=== PATIENT | female | born 1965 | race American Indian/Alaskan Native ===

== ENCOUNTER 2016-06-19 20:06 | Inpatient (IN) | payer OTHER ==
--- NOTE | 2016-06-19 21:20 | Emergency Department Report ---
ED General Adult HPI - General Chief complaint: Altered Mental Status Stated complaint: HYPERTENSION,AMS Time Seen by Provider: 06/19/16 20:30 Source: patient, EMS (ems notes not available at time of chart dictation), RN notes reviewed, old records reviewed Mode of arrival: Stretcher Limitations: Altered Mental Status - History of Present Illness Initial comments: This is a 51-year-old female. She is previously unknown to me. Has a past medical history of hypertension, end-stage renal disease on dialysis Wednesday, Wednesday, Wednesday, reported history of stroke with residual right-sided hemiparesis The patient is brought to the hospital by EMS from dialysis for altered mental status. The patient denies headache, neck pain, chest pain, abdominal pain and shortness of breath. 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 Bermudez. The patient reports that she thinks that she is here for altered mental status but she is not certain why. She cannot describe exacerbating or relieving factors. Denies cough, shortness of breath, chest pain, irritative and obstructive urinary symptoms. -: unknown Consistency: constant Improves with: none Worsens with: none Associated Symptoms: confusion. denies: chest pain, cough, diaphoresis, fever/ chills, loss of appetite, malaise, nausea/vomiting, shortness of breath, syncope , weakness - Related Data Home Medications Medication Instructions Recorded Confirmed Last Taken Magnesium Oxide 1 tab PO BID 01/14/16 06/20/16 01/22/16 Ondansetron [Zofran TAB] 4 mg PO 4XD PRN 01/14/16 06/20/16 01/22/16 levETIRAcetam [Keppra TAB] 750 mg PO 06/20/16 2 Days Ago Previous Rx's Medication Instructions Recorded Last Taken Type traMADol [Ultram 50 MG tab] 1 tab PO Q6H #10 tablet 01/19/16 01/22/16 Rx Folic Acid/Vit B Comp W-C [Renal 1 cap PO QDAY #30 capsule 01/29/16 Unknown Rx Caps] Labetalol [Normodyne TAB] 300 mg PO TID #90 tablet 01/29/16 1 Day Ago Rx amLODIPine [Norvasc] 10 mg PO DAILY #30 tablet 01/29/16 1 Day Ago Rx cloNIDine [Catapres] 0.1 mg PO TID #90 tablet 01/29/16 1 Day Ago Rx oxyCODONE /ACETAMINOPHEN [Percocet 1 tab PO Q6H PRN #30 tablet 01/29/16 Unknown Rx 5/325 mg] Allergies Allergy/AdvReac Type Severity Reaction Status Date / Time lisinopril AdvReac COUGH Verified 01/27/16 16:59 ED Review of Systems ROS: Stated complaint: HYPERTENSION,AMS Other details as noted in HPI Comment: Unobtainable due to pts medical conditions (as per hpi) ED Past Medical Hx - Past Medical History Previous Medical History?: Yes Hx Hypertension: Yes Hx Congestive Heart Failure: No Hx Diabetes: No Hx Renal Disease: Yes (on HD) Hx Asthma: No Hx COPD: No Additional medical history: anemia - Surgical History Past Surgical History?: Yes Additional Surgical History: vas cath rt chest 2015 - Social History Smoking Status: Never Smoker Substance Use Type: None - Medications Home Medications: Home Medications Medication Instructions Recorded Confirmed Last Taken Type Magnesium Oxide 1 tab PO BID 01/14/16 06/20/16 01/22/16 History Ondansetron [Zofran TAB] 4 mg PO 4XD PRN 01/14/16 06/20/16 01/22/16 History traMADol [Ultram 50 MG tab] 1 tab PO Q6H #10 tablet 01/19/16 06/20/16 01/22/16 Rx Folic Acid/Vit B Comp W-C [Renal 1 cap PO QDAY #30 capsule 01/29/16 Unknown Rx Caps] Labetalol [Normodyne TAB] 300 mg PO TID #90 tablet 01/29/16 06/20/16 1 Day Ago Rx amLODIPine [Norvasc] 10 mg PO DAILY #30 tablet 01/29/16 06/20/16 1 Day Ago Rx cloNIDine [Catapres] 0.1 mg PO TID #90 tablet 01/29/16 06/20/16 1 Day Ago Rx oxyCODONE /ACETAMINOPHEN [Percocet 1 tab PO Q6H PRN #30 tablet 01/29/16 Unknown Rx 5/325 mg] levETIRAcetam [Keppra TAB] 750 mg PO 06/20/16 2 Days Ago History ED Physical Exam - General Limitations: Altered Mental Status General appearance: in no apparent distress - Head Head exam: Present: atraumatic, normocephalic - Eye Eye exam: Present: normal appearance, EOMI. Absent: nystagmus - ENT ENT exam: Present: normal exam, normal orophraynx, mucous membranes moist - Neck Neck exam: Present: normal inspection, full ROM. Absent: tenderness, meningismus - Respiratory Respiratory exam: Present: normal lung sounds bilaterally, other (there is a right-sided anterior thoracic wall dialysis access catheter noted, with no redness, pus, streaking). Absent: respiratory distress, wheezes, rales, rhonchi , stridor, chest wall tenderness - Cardiovascular Cardiovascular Exam: Present: regular rate, normal rhythm, normal heart sounds. Absent: bradycardia, tachycardia, irregular rhythm, systolic murmur, diastolic murmur, rubs, gallop - GI/Abdominal GI/Abdominal exam: Present: soft, normal bowel sounds. Absent: distended, tenderness, guarding, rebound, rigid, pulsatile mass - Extremities Exam Extremities exam: Present: normal inspection, normal capillary refill. Absent: pedal edema, joint swelling, calf tenderness - Back Exam Back exam: Present: normal inspection, full ROM. Absent: tenderness, CVA tenderness (R), CVA tenderness (L), muscle spasm, paraspinal tenderness, vertebral tenderness - Neurological Exam Neurological exam: Present: altered (patient is alert to name. Does not know where she is, does not know the day of the week, does not know the month.), other (Extraocular movements intact. Tongue midline. No facial droop. Facial sensation intact to light touch in the V1, V2, V3 distribution bilaterally. 5 and 5 strength in 4 extremities.. Sensation is intact to light touch in 4 extremities.). Absent: motor sensory deficit - Psychiatric Psychiatric exam: Present: normal affect, normal mood - Skin Skin exam: Present: warm, dry, intact, normal color. Absent: rash ED Course Vital Signs 06/19/16 06/19/16 06/19/16 20:23 20:50 21:42 Temperature 97.4 F L 97.8 F Pulse Rate 78 Respiratory 11 L 15 Rate Blood Pressure 212/131 Blood Pressure 197/111 [Right] O2 Sat by Pulse 94 94 Oximetry 06/19/16 06/19/16 06/19/16 23:01 23:27 23:46 Temperature 97.4 F L 97.4 F L Pulse Rate 78 89 Respiratory 24 15 Rate Blood Pressure 197/117 Blood Pressure 203/117 181/108 [Right] O2 Sat by Pulse 99 99 Oximetry 06/20/16 00:15 Temperature 97.5 F L Pulse Rate 89 Respiratory 15 Rate Blood Pressure Blood Pressure 177/104 [Right] O2 Sat by Pulse 100 Oximetry - Reevaluation(s) Reevaluation #1: 06/19/16 22:09 Differential diagnosis: Hypertensive encephalopathy, dialysis disequilibrium syndrome, pneumonia, urinary tract infection, toxic encephalopathy, metabolic encephalopathy Assessment and plan: 51-year-old female with altered mental status, nonfocal neurologic examination. Patient has no lateralizing deficits, and she has an elevated blood pressure, uncertain when symptoms began, therefore for multiple reasons she is not a TPA candidate. Laboratory studies are pending. X-ray of the chest shows bilateral pleural effusions. She will be given hydralazine for elevated blood pressure. I clinically don't think the patient has pneumonia. The patient is calm, cooperative, lucid, follows commands. Reevaluation #2: 06/19/16 22:45 laboratory studies suggest urinary tract infection. Ceftriaxone ordered. The Hospital physician, Dr. Hilliard, accepts the patient to her service. ED Medical Decision Making - Lab Data Result diagrams: 06/19/16 20:49 06/19/16 20:49 Vital Signs 06/19/16 06/19/16 06/19/16 20:23 20:50 21:42 Temperature 97.4 F L 97.8 F Pulse Rate 78 Respiratory 11 L 15 Rate Blood Pressure 212/131 Blood Pressure 197/111 [Right] O2 Sat by Pulse 94 94 Oximetry Lab Results 06/19/16 06/19/16 06/19/16 Range/Units 20:49 20:49 20:49 APTT 26.9 (24.2-36.6) Sec. Lactic Acid 1.10 (0.7-2.0) mmol/L Ammonia 28.0 (25-60) umol/L Total Creatine Kinase (30-135) units/L Troponin T (0.00-0.029) ng/mL TSH (0.270-4.200) mlU/mL Salicylates (2.8-20.0) mg/dL Acetaminophen (10.0-30.0) ug/mL Plasma/Serum Alcohol (0-0.07) gm% 05/07/0106/19/16 06/19/16 Range/Units 20:49 20:49 20:49 APTT (24.2-36.6) Sec. Lactic Acid (0.7-2.0) mmol/L Ammonia (25-60) umol/L Total Creatine Kinase 287 H (30-135) units/L Troponin T 0.120 H* (0.00-0.029) ng/mL TSH 3.710 (0.270-4.200) mlU/mL Salicylates < 0.3 L (2.8-20.0) mg/dL Acetaminophen (10.0-30.0) ug/mL Plasma/Serum Alcohol (0-0.07) gm% 06/19/16 06/19/16 Range/Units 20:49 20:49 APTT (24.2-36.6) Sec. Lactic Acid (0.7-2.0) mmol/L Ammonia (25-60) umol/L Total Creatine Kinase (30-135) units/L Troponin T (0.00-0.029) ng/mL TSH (0.270-4.200) mlU/mL Salicylates (2.8-20.0) mg/dL Acetaminophen < 15.0 (10.0-30.0) ug/mL Plasma/Serum Alcohol < 0.01 (0-0.07) gm% elevated troponin is appreciated, most likely in the context of renal insufficiency. - EKG Data -: EKG Interpreted by Il - EKG Data 06/19/16 22:11 Normal sinus, 83 bpm, normal intervals, normal axis, borderline left ventricular hypertrophy, not consistent with STEMI, appears unchanged when compared to prior EKG, with the exception of resolution of left axis deviation. - Radiology Data Radiology results: report reviewed, image reviewed X-ray of the chest demonstrates small bilateral pleural effusions, chronic pulmonary vascular congestion, right-sided dialysis access catheter noted. Noncontrast CT scan of the brain: There are patchy areas of hypointensity within the supratentorial white matter. Left occipital lobe there is a small focal area of decreased density likely reflecting encephalomalacia. There is no acute hemorrhage noted. No evidence for midline shaft or mass effect. Critical care attestation.: If time is entered above; I have spent that time in minutes in the direct care of this critically ill patient, excluding procedure time. ED Disposition Clinical Impression: Altered mental status, ESRD (end stage renal disease) on dialysis, Hypertensive emergency, UTI (urinary tract infection) Disposition: OP ADMITTED IP TO THIS HOSP Is pt being admited?: Yes Condition: Good
--- NOTE | 2016-06-19 21:44 | XRay Report ---
FINAL REPORT EXAM: XR CHEST 1V AP HISTORY: Altered Mental Status, hypertension TECHNIQUE: Single AP view of the chest PRIORS: None. FINDINGS: Right central venous dialysis catheter noted catheter tips at the cavoatrial junction. There is minimal blunting of the right costophrenic angle mild blunting of the left costophrenic angle. Cardiac silhouette is mildly prominent size. Pulmonary vasculature is unremarkable. No confluent pulmonary infiltrate identified. IMPRESSION: Small bilateral pleural effusions more prominent on the left Mild cardiomegaly Dialysis catheter
[2016-06-19] MEDS ORDERED: APRESOLINE IV ONE (22:09)
[2016-06-19 22:27] LABS: BUN/Creatinine Ratio 6.92; Calcium 9.2 mg/dL (8.4-10.2); Chloride 91.8 mmol/L (98-107); Potassium 3.8 mmol/L (3.6-5.0)
[2016-06-19 22:38] LABS: Bacteria,Urine 4+ /HPF (Negative); Bilirubin,Urine NEG (Negative); Blood,Urine MOD (Negative); Ketones,Urine NEG (Negative); Leukocyte Esterase,Urine LG (Negative); Nitrite,Urine NEG (Negative); Urobilinogen,Urine < 2.0 mg/dL (<2.0)
[2016-06-19 22:39] LABS: Basophils % (Auto) 0.9 % (0.0-1.8); Eosinophils % (Auto) 0.2 % (0.0-4.3); Hematocrit 24.3 % (30.3-42.9); Mean Corpuscular HGB Conc 33 % (30-34); Mean Corpuscular Hemoglobin 29 pg (28-32); Mean Corpuscular Volume 88 fl (79-97); Platelet Count 217 K/mm3 (140-440); Red Blood Count 2.77 M/mm3 (3.65-5.03); White Blood Count 7.8 K/mm3 (4.5-11.0)
[2016-06-19 22:40] LABS: Red Cell Distribution Width 20.1 % (13.2-15.2)
[2016-06-19] MEDS ORDERED: ROCEPHIN/NS 1 GM/50 ML 1 GM/50 ML BAG IV ONE (22:44)
--- NOTE | 2016-06-19 22:53 | Cat Scan Report ---
FINAL REPORT EXAM: CT HEAD/BRAIN WO CON HISTORY: Altered Mental Status TECHNIQUE: CT head without contrast PRIORS: None. FINDINGS: There are patchy areas of hypodensity within the supratentorial white matter. The left occipital lobe there is a small focal area decreased density extending through the cortex likely reflecting encephalomalacia. No acute intra or extra-axial hemorrhage is identified. No evidence for midline shift or mass effect. Ventricles and sulci are within normal limits. IMPRESSION: White matter hypodensity Small focal area of encephalomalacia in the left occipital lobe. Could reflect ischemic changes however appears disproportionate for the patient's age and other etiologies should be considered. Given lack prior exams for comparison suggest further evaluation with MRI preferably with contrast
[2016-06-19] MEDS ORDERED: BABY ASPIRIN PO ONE (23:23)
--- NOTE | 2016-06-20 00:25 | History and Physical Report ---
History of Present Illness Date of examination: 06/19/16 Date of admission: 06/19/16 23:35 History of present illness: 50-year-old woman with a history of hypertension, end-stage renal disease on dialysis Wednesday, Wednesday, Wednesday, CVA which right side hemiparesis was sent to the emergency room because of altered mental status. The patient is unable to provide further history, a review of systems difficult to ellict PAST SURGICAL HISTORY: AV fistula SOCIAL HISTORY: Denies alcohol, tobacco, drugs FAMILY HISTORY: Hypertension Medications and Allergies Allergies Allergy/AdvReac Type Severity Reaction Status Date / Time lisinopril AdvReac COUGH Verified 01/27/16 16:59 Home Medications Medication Instructions Recorded Confirmed Last Taken Type Magnesium Oxide 1 tab PO BID 01/14/16 06/20/16 01/22/16 History Ondansetron [Zofran TAB] 4 mg PO 4XD PRN 01/14/16 06/20/16 01/22/16 History traMADol [Ultram 50 MG tab] 1 tab PO Q6H #10 tablet 01/19/16 06/20/16 01/22/16 Rx Folic Acid/Vit B Comp W-C [Renal 1 cap PO QDAY #30 capsule 01/29/16 Unknown Rx Caps] Labetalol [Normodyne TAB] 300 mg PO TID #90 tablet 01/29/16 06/20/16 1 Day Ago Rx amLODIPine [Norvasc] 10 mg PO DAILY #30 tablet 01/29/16 06/20/16 1 Day Ago Rx cloNIDine [Catapres] 0.1 mg PO TID #90 tablet 01/29/16 06/20/16 1 Day Ago Rx oxyCODONE /ACETAMINOPHEN [Percocet 1 tab PO Q6H PRN #30 tablet 01/29/16 Unknown Rx 5/325 mg] levETIRAcetam [Keppra TAB] 750 mg PO 06/20/16 2 Days Ago History Active Meds: Active Medications Enoxaparin Sodium (Lovenox) 30 mg SUB-Q QDAY SAVI Exam - Physical Exam Narrative exam: Gen. appearance: Patient lying in bed, no apparent distress HEENT: Normocephalic, atraumatic, pupils equally round and reactive to light, extraocular movement intact, and no sclericterus,. No JVD or thyromegaly or nodule,neck supple, no carotid bruit ,mucous membranes moist, no exudate or erythema Heart: S1, S2, regular rate and rhythm Lungs: Clear to auscultation bilaterally, breathing comfortable Abdomen: Positive bowel sounds, nontender, nondistended, no organomegaly Extremity: No edema, cyanosis, clubbing Skin: No rash, nodules, warm, dry Neuro: Oriented to self , speech is fluent, right hemiparesis, the rest difficult to assess - Constitutional Vitals: Temp Pulse Resp BP Pulse Ox 97.5 F L 89 15 177/104 100 06/20/16 00:15 06/20/16 00:15 06/20/16 00:15 06/20/16 00:15 06/20/16 00:15 Results - Labs CBC & Chem 7: 06/19/16 20:49 06/19/16 20:49 - Imaging and Cardiology EKG: image reviewed Chest x-ray: image reviewed CT Scan - head: report reviewed Assessment and Plan Altered mental status UTI Hypertension malignant End-stage renal disease on dialysis History of CVA Admit to medicine Start rocephin, IV hydralazine Continue appropiate outpatient medications Start DVT prophylaxis
[2016-06-20] MEDS ORDERED: ZOFRAN IV PRN (00:54)
[2016-06-20] MEDS ORDERED: DULCOLAX PR PRN (00:54)
[2016-06-20] MEDS ORDERED: TYLENOL PO PRN (00:54)
[2016-06-20 01:50] LABS: Creatine Kinase MB 5.8 ng/mL (0.0-4.0)
[2016-06-20] MEDS: APRESOLINE IV SCH ×3 (06:58→17:17)
[2016-06-20 07:41] LABS: Creatine Kinase MB 5.8 ng/mL (0.0-4.0)
[2016-06-20] MEDS ORDERED: ZOFRAN PO PRN (08:07)
[2016-06-20] MEDS ORDERED: PERCOCET 5/325 PO PRN (08:07)
[2016-06-20] MEDS: PHOSLO PO SCH ×3 (08:35→17:18)
[2016-06-20] MEDS ORDERED: NORMODYNE PO SCH ×2 (10:00→14:00)
[2016-06-20] MEDS: ULTRAM PO SCH ×3 (10:17→21:00)
[2016-06-20] MEDS: MAG-OX PO SCH ×2 (14:26→22:15)
[2016-06-20] MEDS: NORMODYNE PO SCH ×2 (14:26→22:14)
[2016-06-20] MEDS: NORVASC PO SCH (14:26)
[2016-06-20] MEDS: LOVENOX SUB-Q SCH (14:27)
--- NOTE | 2016-06-20 15:58 | Admit Criteria Form ---
Admission Criteria Documentation: RENAL FAILURE, CHRONIC Clinical Indications for Admission to Inpatient Care (Place 'X' for any and all applicable criteria): Admission is indicated for ANY ONE of the following (1)(2)(3)(4)(5): [X ]I. Inpatient admission required rather than observation care (Use Renal Failure, Chronic: Observation Care Criteria as appropriate) because of ANY ONE of the following: [ ]a) Volume overload or uremic symptoms (eg, clinically significant pulmonary edema, hypertension, pericarditis, acidosis) too severe for, or not responsive (eg, for over 24 hours) to emergency department or observation care dialysis or treatment regimen (11) [ ]b) Hemodynamic instability that is severe or persistent [ ]c) Respiratory distress that is severe or persistent (11) [ ]d) Clinically significant electrolyte abnormality that requires inpatient care (eg,hyperkalemia with severe ECG findings)[B] [ ]e) Supplement O2 or respiratory therapy for over 24hrs that is performable only in acute inpatient setting [ ]f) Continuous IV infusion of anticoagulation, platelet inhibitor, vasoactive, or Antiarrhythmic medication (15), [ ]g) Pulmonary artery catheter monitoring [ ]h) Temporary pacemaker placement [ ]i) Emergent pericardiocentesis [ X]j) Other condition, treatment or monitoring requiring inpatient admission [ ]II. Unexplained syncope [A] [ ]III. Recurrent seizures [ ]IV. Severe infections not treatable in outpatient setting (eg, peritonitis)(9 ) [ ]V. Cardiac arrhythmias of immediate concern [ ]. Encephalopathy [ ]VII.Bleeding abnormalities (eg, platelet dysfunction) with active (eg, gastrointestinal) bleeding Extended stay beyond goal length of stay may be needed for (3)(4)(35)(36): [ ]a) Continuing uremic complications [ ]b) Comorbidities or complications The original [employer] content created by [employer] has been revised. The portions of the content which have been revised are identified through the use of italic text or in bold, and [facility] has neither reviewed nor approved the modified material. All other unmodified content is copyright [employer]. Please see references footnoted in the original [facility] edition 2016 Admission Criteria Met: Yes
--- NOTE | 2016-06-20 16:02 | Progress Note ---
Assessment and Plan Assessment and plan: Altered mental status UTI Hypertension malignant End-stage renal disease on dialysis History of CVA Anemia of chronic illness - on rocephin, IV hydralazine PRN - Resume home medication - Patient was dialyzed yesterday Disposition - will discharged likely tomorrow History Interval history: She was seen and evaluated this afternoon, she doesn't have chest pain, confusion. She is alert and oriented. Hospitalist Physical - Physical exam Narrative exam: Not in cardiopulmonary distress. The patient appeared well nourished and normally developed. Vital signs as documented. Head exam is unremarkable. No scleral icterus . Neck is without jugular venous distension, thyromegaly, or carotid bruits. Lungs are clear to auscultation. Cardiac exam reveals regular rate and Rhythm. First and second heart sounds normal. No murmurs, rubs or gallops. Abdominal exam reveals normal bowel sounds, no masses, no organomegaly and no aortic enlargement. Extremities are nonedematous and both femoral and pedal pulses are normal. PERSONAL DRIVER: Alert and oriented 3. - Constitutional Vitals: Temp Pulse Resp BP Pulse Ox 98.5 F 83 16 196/104 99 06/20/16 07:45 06/20/16 07:45 06/20/16 07:45 06/20/16 07:45 06/20/16 10:17 Results - Labs CBC & Chem 7: 06/19/16 20:49 06/19/16 20:49 Labs: Laboratory Last Values WBC 7.8 K/mm3 (4.5-11.0) 06/19/16 20:49 RBC 2.77 M/mm3 (3.65-5.03) L 06/19/16 20:49 Hgb 8.0 gm/dl (10.1-14.3) L 06/19/16 20:49 Hct 24.3 % (30.3-42.9) L 06/19/16 20:49 MCV 88 fl (79-97) 06/19/16 20:49 MCH 29 pg (28-32) 06/19/16 20:49 MCHC 33 % (30-34) 06/19/16 20:49 RDW 20.1 % (13.2-15.2) H 06/19/16 20:49 Plt Count 217 K/mm3 (140-440) 06/19/16 20:49 Lymph % (Auto) 23.7 % (13.4-35.0) 06/19/16 20:49 Anson % (Auto) 4.1 % (0.0-7.3) 06/19/16 20:49 Eos % (Auto) 0.2 % (0.0-4.3) 06/19/16 20:49 Baso % (Auto) 0.9 % (0.0-1.8) 06/19/16 20:49 Lymph # 1.8 K/mm3 (1.2-5.4) 06/19/16 20:49 Anson # 0.3 K/mm3 (0.0-0.8) 06/19/16 20:49 Eos # 0.0 K/mm3 (0.0-0.4) 06/19/16 20:49 Baso # 0.1 K/mm3 (0.0-0.1) 06/19/16 20:49 Seg Neutrophils % 71.1 % (40.0-70.0) H 06/19/16 20:49 Seg Neutrophils # 5.5 K/mm3 (1.8-7.7) 06/19/16 20:49 APTT 26.9 Sec. (24.2-36.6) 06/19/16 20:49 Sodium 136 mmol/L (137-145) L 06/19/16 20:49 Potassium 3.8 mmol/L (3.6-5.0) 06/19/16 20:49 Chloride 91.8 mmol/L (98-107) L 06/19/16 20:49 Carbon Dioxide 23 mmol/L (22-30) 06/19/16 20:49 Anion Gap 25 mmol/L 06/19/16 20:49 BUN 36 mg/dL (7-17) H 06/19/16 20:49 Creatinine 5.2 mg/dL (0.7-1.2) H 06/19/16 20:49 Estimated GFR 11 ml/min 06/19/16 20:49 BUN/Creatinine Ratio 6.92 % 06/19/16 20:49 Glucose 92 mg/dL (65-100) 06/19/16 20:49 Lactic Acid 1.10 mmol/L (0.7-2.0) 06/19/16 20:49 Calcium 9.2 mg/dL (8.4-10.2) 06/19/16 20:49 Ammonia 28.0 umol/L (25-60) 06/19/16 20:49 Total Creatine Kinase 251 units/L (30-135) H 06/20/16 06:59 CK-MB (CK-2) 5.8 ng/mL (0.0-4.0) H 06/20/16 06:59 CK-MB (CK-2) Rel Index 2.3 (0-4) 06/20/16 06:59 Troponin T 0.118 ng/mL (0.00-0.029) H* 06/20/16 06:59 Triglycerides 134 mg/dL (2-149) 06/19/16 20:49 Cholesterol 267 mg/dL (50-199) H 06/19/16 20:49 LDL Cholesterol Direct 186 mg/dL (50-130) H 06/19/16 20:49 HDL Cholesterol 55 mg/dL (40-59) 06/19/16 20:49 Cholesterol/HDL Ratio 4.85 % 06/19/16 20:49 TSH 3.710 mlU/mL (0.270-4.200) 06/19/16 20:49 Urine Color Yellow (Yellow) 06/19/16 21:41 Urine Turbidity Turbid (Clear) 06/19/16 21:41 Urine pH 5.0 (5.0-7.0) 06/19/16 21:41 Ur Specific Zoe 1.013 (1.003-1.030) 06/19/16 21:41 Urine Protein 100 mg/dl mg/dL (Negative) 06/19/16 21:41 Urine Glucose (UA) Neg mg/dL (Negative) 06/19/16 21:41 Urine Ketones Neg mg/dL (Negative) 06/19/16 21:41 Urine Blood Mod (Negative) 06/19/16 21:41 Urine Nitrite Neg (Negative) 06/19/16 21:41 Urine Bilirubin Neg (Negative) 06/19/16 21:41 Urine Urobilinogen < 2.0 mg/dL (<2.0) 06/19/16 21:41 Ur Leukocyte Esterase Lg (Negative) 06/19/16 21:41 Urine WBC (Auto) 159.0 /HPF (0.0-6.0) H 06/19/16 21:41 Urine RBC (Auto) 11.0 /HPF (0.0-6.0) 06/19/16 21:41 U Epithel Cells (Auto) 2.0 /HPF (0-13.0) 06/19/16 21:41 Urine Bacteria (Auto) 4+ /HPF (Negative) 06/19/16 21:41 Urine WBC Clumps 3+ /HPF 06/19/16 21:41 Salicylates < 0.3 mg/dL (2.8-20.0) L 06/19/16 20:49 Acetaminophen < 15.0 ug/mL (10.0-30.0) 06/19/16 20:49 Plasma/Serum Alcohol < 0.01 gm% (0-0.07) 06/19/16 20:49
[2016-06-20] MEDS: Renal Caps PO SCH (17:17)
[2016-06-20] MEDS: CATAPRES PO SCH ×2 (17:19→22:13)
[2016-06-21] MEDS: KEPPRA PO SCH ×2 (00:21→21:25)
[2016-06-21] MEDS: APRESOLINE IV SCH ×4 (00:24→18:15)
[2016-06-21] MEDS: ULTRAM PO SCH ×4 (03:00→21:00)
[2016-06-21 05:09] LABS: Basophils % (Auto) 0.8 % (0.0-1.8); Eosinophils % (Auto) 2.3 % (0.0-4.3); Hematocrit 20.2 % (30.3-42.9); Hemoglobin 6.5 gm/dl (10.1-14.3); Mean Corpuscular HGB Conc 32 % (30-34); Mean Corpuscular Hemoglobin 28 pg (28-32); Mean Corpuscular Volume 88 fl (79-97); Platelet Count 164 K/mm3 (140-440); Red Blood Count 2.29 M/mm3 (3.65-5.03); White Blood Count 6.7 K/mm3 (4.5-11.0)
[2016-06-21 05:28] LABS: BUN/Creatinine Ratio 6.62; Calcium 8.5 mg/dL (8.4-10.2); Chloride 98.1 mmol/L (98-107); Potassium 3.8 mmol/L (3.6-5.0); Red Cell Distribution Width 20.4 % (13.2-15.2)
[2016-06-21] MEDS ORDERED: NACL 0.9% 500 ML 500 ML IV ONE (08:31)
[2016-06-21] MEDS: MAG-OX PO SCH ×2 (09:04→21:25)
[2016-06-21] MEDS: LOVENOX SUB-Q SCH (09:04)
[2016-06-21] MEDS: CATAPRES PO SCH ×3 (09:05→20:15)
[2016-06-21] MEDS: PHOSLO PO SCH ×3 (09:05→16:20)
[2016-06-21] MEDS: NORMODYNE PO SCH ×3 (09:05→20:15)
[2016-06-21] MEDS: NORVASC PO SCH (09:05)
[2016-06-21] MEDS: Renal Caps PO SCH (09:05)
[2016-06-21 11:48] LABS: Hemoglobin 6.4 gm/dl (10.1-14.3)
--- NOTE | 2016-06-21 11:52 | Progress Note ---
Assessment and Plan Assessment and plan: Altered mental status UTI Hypertension malignant End-stage renal disease on dialysis History of CVA Anemia of chronic illness hemoglobin this morning was 6.3 - Transfuse 2 units of blood - Nephrology consult - on rocephin, IV hydralazine PRN - Resume home medication - Dialysis per nephrology Disposition - will discharge after transfusion, likely tomorrow morning. History Interval history: She was seen and evaluated at bedside, she doesn't have chest pain, confusion. She is alert and oriented. She looks pale. Hospitalist Physical - Physical exam Narrative exam: Not in cardiopulmonary distress. The patient appeared well nourished and normally developed. Vital signs as documented. Head exam is unremarkable. Plae conjunctiva. Neck is without jugular venous distension, thyromegaly, or carotid bruits. Lungs are clear to auscultation. Cardiac exam reveals regular rate and Rhythm. First and second heart sounds normal. No murmurs, rubs or gallops. Abdominal exam reveals normal bowel sounds, no masses, no organomegaly and no aortic enlargement. Extremities are nonedematous and both femoral and pedal pulses are normal. REBAR FABRICATOR: Alert and oriented 3. - Constitutional Vitals: Temp Pulse Resp BP Pulse Ox 98 F 74 16 158/87 98 06/21/16 07:50 06/21/16 07:50 06/21/16 07:50 06/21/16 07:50 06/21/16 08:19 Results - Labs CBC & Chem 7: 06/21/16 04:38 06/21/16 04:38 Labs: Laboratory Last Values WBC 6.7 K/mm3 (4.5-11.0) 06/21/16 04:38 RBC 2.29 M/mm3 (3.65-5.03) L 06/21/16 04:38 Hgb 6.5 gm/dl (10.1-14.3) L 06/21/16 04:38 Hct 20.2 % (30.3-42.9) L 06/21/16 04:38 MCV 88 fl (79-97) 06/21/16 04:38 MCH 28 pg (28-32) 06/21/16 04:38 MCHC 32 % (30-34) 06/21/16 04:38 RDW 20.4 % (13.2-15.2) H 06/21/16 04:38 Plt Count 164 K/mm3 (140-440) 06/21/16 04:38 Lymph % (Auto) 26.7 % (13.4-35.0) 06/21/16 04:38 [place] % (Auto) 8.6 % (0.0-7.3) H 06/21/16 04:38 Eos % (Auto) 2.3 % (0.0-4.3) 06/21/16 04:38 Baso % (Auto) 0.8 % (0.0-1.8) 06/21/16 04:38 Lymph # 1.8 K/mm3 (1.2-5.4) 06/21/16 04:38 [place] # 0.6 K/mm3 (0.0-0.8) 06/21/16 04:38 Eos # 0.2 K/mm3 (0.0-0.4) 06/21/16 04:38 Baso # 0.1 K/mm3 (0.0-0.1) 06/21/16 04:38 Seg Neutrophils % 61.6 % (40.0-70.0) 06/21/16 04:38 Seg Neutrophils # 4.1 K/mm3 (1.8-7.7) 06/21/16 04:38 APTT 26.9 Sec. (24.2-36.6) 06/19/16 20:49 Sodium 138 mmol/L (137-145) 06/21/16 04:38 Potassium 3.8 mmol/L (3.6-5.0) 06/21/16 04:38 Chloride 98.1 mmol/L (98-107) 06/21/16 04:38 Carbon Dioxide 23 mmol/L (22-30) 06/21/16 04:38 Anion Gap 21 mmol/L 06/21/16 04:38 BUN 51 mg/dL (7-17) H 06/21/16 04:38 Creatinine 7.7 mg/dL (0.7-1.2) H 06/21/16 04:38 Estimated GFR 7 ml/min 06/21/16 04:38 BUN/Creatinine Ratio 6.62 % 06/21/16 04:38 Glucose 88 mg/dL (65-100) 06/21/16 04:38 Lactic Acid 1.10 mmol/L (0.7-2.0) 06/19/16 20:49 Calcium 8.5 mg/dL (8.4-10.2) 06/21/16 04:38 Ammonia 28.0 umol/L (25-60) 06/19/16 20:49 Total Creatine Kinase 251 units/L (30-135) H 06/20/16 06:59 CK-MB (CK-2) 5.8 ng/mL (0.0-4.0) H 06/20/16 06:59 CK-MB (CK-2) Rel Index 2.3 (0-4) 06/20/16 06:59 Troponin T 0.118 ng/mL (0.00-0.029) H* 06/20/16 06:59 Triglycerides 134 mg/dL (2-149) 06/19/16 20:49 Cholesterol 267 mg/dL (50-199) H 06/19/16 20:49 LDL Cholesterol Direct 186 mg/dL (50-130) H 06/19/16 20:49 HDL Cholesterol 55 mg/dL (40-59) 06/19/16 20:49 Cholesterol/HDL Ratio 4.85 % 06/19/16 20:49 TSH 3.710 mlU/mL (0.270-4.200) 06/19/16 20:49 Urine Color Yellow (Yellow) 06/19/16 21:41 Urine Turbidity Turbid (Clear) 06/19/16 21:41 Urine pH 5.0 (5.0-7.0) 06/19/16 21:41 Ur Specific [place] 1.013 (1.003-1.030) 06/19/16 21:41 Urine Protein 100 mg/dl mg/dL (Negative) 06/19/16 21:41 Urine Glucose (UA) Neg mg/dL (Negative) 06/19/16 21:41 Urine Ketones Neg mg/dL (Negative) 06/19/16 21:41 Urine Blood Mod (Negative) 06/19/16 21:41 Urine Nitrite Neg (Negative) 06/19/16 21:41 Urine Bilirubin Neg (Negative) 06/19/16 21:41 Urine Urobilinogen < 2.0 mg/dL (<2.0) 06/19/16 21:41 Ur Leukocyte Esterase Lg (Negative) 06/19/16 21:41 Urine WBC (Auto) 159.0 /HPF (0.0-6.0) H 06/19/16 21:41 Urine RBC (Auto) 11.0 /HPF (0.0-6.0) 06/19/16 21:41 U Epithel Cells (Auto) 2.0 /HPF (0-13.0) 06/19/16 21:41 Urine Bacteria (Auto) 4+ /HPF (Negative) 06/19/16 21:41 Urine WBC Clumps 3+ /HPF 06/19/16 21:41 Salicylates < 0.3 mg/dL (2.8-20.0) L 06/19/16 20:49 Acetaminophen < 15.0 ug/mL (10.0-30.0) 06/19/16 20:49 Plasma/Serum Alcohol < 0.01 gm% (0-0.07) 06/19/16 20:49 Anemia
[2016-06-21 12:09] LABS: Hematocrit 19.8 % (30.3-42.9)
[2016-06-21] MEDS ORDERED: NACL 0.9% 100 ML IV PRN (12:18)
--- NOTE | 2016-06-21 12:18 | Consultation ---
History of Present Illness - Reason for Consult Consult date: 06/21/16 end stage renal disease Requesting physician: ALBIN HIGHTOWER - History of Present Illness 50-year-old woman with a history of hypertension, end-stage renal disease on dialysis Wednesday, Wednesday, Wednesday, CVA which right side hemiparesis was admitted to the hospital day before yesterday with altered mental status. She apparently had alteration in mental status after completion of her dialysis treatment on Wednesday. She feels much better at this time. She is fully awake and alert as well as oriented to place person and time. Patient denies any chest pain or shortness of breath. No nausea vomiting or diarrhea. Past History Past Medical History: dialysis, hypertension Past Surgical History: Other (history of PermCath placement and AV access) Social history: no significant social history Family history: no significant family history Medications and Allergies Allergies Allergy/AdvReac Type Severity Reaction Status Date / Time lisinopril AdvReac COUGH Verified 01/27/16 16:59 Home Medications Medication Instructions Recorded Confirmed Last Taken Type Magnesium Oxide 1 tab PO BID 01/14/16 06/20/16 01/22/16 History Ondansetron [Zofran TAB] 4 mg PO 4XD PRN 01/14/16 06/20/16 01/22/16 History traMADol [Ultram 50 MG tab] 1 tab PO Q6H #10 tablet 01/19/16 06/20/16 01/22/16 Rx Folic Acid/Vit B Comp W-C [Renal 1 cap PO QDAY #30 capsule 01/29/16 Unknown Rx Caps] Labetalol [Normodyne TAB] 300 mg PO TID #90 tablet 01/29/16 06/20/16 1 Day Ago Rx amLODIPine [Norvasc] 10 mg PO DAILY #30 tablet 01/29/16 06/20/16 1 Day Ago Rx cloNIDine [Catapres] 0.1 mg PO TID #90 tablet 01/29/16 06/20/16 1 Day Ago Rx oxyCODONE /ACETAMINOPHEN [Percocet 1 tab PO Q6H PRN #30 tablet 01/29/16 Unknown Rx 5/325 mg] levETIRAcetam [Keppra TAB] 750 mg PO 06/20/16 2 Days Ago History Active Meds: Active Medications Acetaminophen (Tylenol) 650 mg PO Q4H PRN PRN Reason: Pain MILD(1-3)/Fever >100.5/BLAKE Amlodipine Besylate (Norvasc) 10 mg PO DAILY [facility] Last Admin: 06/21/16 09:05 Dose: 10 mg Bisacodyl (Dulcolax) 10 mg [place] QDAY PRN PRN Reason: Constipation unrelieved by [facility] [place] Calcium Acetate (Phoslo) 667 mg PO TIDWM [facility] Last Admin: 06/21/16 09:05 Dose: 667 mg Clonidine HCl (Catapres) 0.1 mg PO TID [facility] Last Admin: 06/21/16 09:05 Dose: 0.1 mg Enoxaparin Sodium (Lovenox) 30 mg SUB-Q QDAY [facility] Last Admin: 06/21/16 09:04 Dose: 30 mg Hydralazine HCl (Apresoline) 10 mg IV Q6HR [facility] Last Admin: 06/21/16 05:45 Dose: 10 mg Labetalol HCl (Normodyne) 300 mg PO TID [facility] Last Admin: 06/21/16 09:05 Dose: 300 mg Levetiracetam (Keppra) 750 mg PO HS [facility] Last Admin: 06/21/16 00:21 Dose: 750 mg Magnesium Oxide (Mag-Ox) 400 mg PO BID [facility] Last Admin: 06/21/16 09:04 Dose: 400 mg Multivit/Ca Carb/B Cmplx/FA/Prenat (Renal Caps) 1 cap PO QDAY [facility] Last Admin: 06/21/16 09:05 Dose: 1 cap Ondansetron HCl (Zofran) 4 mg IV Q8H PRN PRN Reason: N/V unrelieved by Reglan Ondansetron HCl (Zofran) 4 mg PO 4XD PRN PRN Reason: peptic ulcer Oxycodone/Acetaminophen (Percocet 5/325) 1 tab PO Q6H PRN PRN Reason: Pain, Moderate (4-6) Tramadol HCl (Ultram) 50 mg PO Q6H [facility] Last Admin: 06/21/16 08:10 Dose: Not Given Review of Systems All systems: negative (negative except as noted above) Exam - Vital Signs Vital signs: Vital Signs Temp BP Pulse Ox 97.4 F L 212/131 94 06/19/16 20:23 06/19/16 20:23 06/19/16 20:23 - General Appearance General appearance: well-developed, well-nourished, appears stated age EENT: PERRL, mucous membranes moist Neck: Present: neck supple, trachea midline, Other (right IJ PermCath in place) . Absent: JVD/HJR, Masses Respiratory: Clear to Ascultation Heart: regular, normal heart rate Gastrointestinal: Present: normal, normoactive bowel sounds Integumentary: no rash, warm and dry Results - Lab Results 06/21/16 10:34 06/21/16 04:38 Most recent lab results Calcium 8.5 mg/dL (8.4-10.2) 06/21/16 04:38 Assessment and Plan Impression * End-stage renal disease on maintenance hemodialysis * Altered mental status * Anemia * Hypertension Recommendations * Shall schedule patient for hemodialysis for tomorrow and keep her on Wednesday, Wednesday and Wednesday schedule as outpatient * Patient also noted to have a low hemoglobin. Shall plan to transfuse with dialysis tomorrow * Administer Procrit with dialysis * Adjust diet and meds for ESRD state * Avoid nephrotoxins * Binders with diet * Her mental status seems to have returned to baseline. Etiology remains unclear * Thank you very much for the consultation. Shall follow along with you
[2016-06-22] MEDS: APRESOLINE IV SCH ×4 (00:56→18:49)
[2016-06-22] MEDS: ULTRAM PO SCH ×3 (03:00→15:03)
[2016-06-22 04:43] LABS: Basophils % (Auto) 0.7 % (0.0-1.8); Eosinophils % (Auto) 7.9 % (0.0-4.3); Hematocrit 23.5 % (30.3-42.9); Hemoglobin 7.8 gm/dl (10.1-14.3); Mean Corpuscular HGB Conc 33 % (30-34); Mean Corpuscular Hemoglobin 30 pg (28-32); Mean Corpuscular Volume 90 fl (79-97); Platelet Count 160 K/mm3 (140-440)
[2016-06-22 04:54] LABS: Red Cell Distribution Width 20.2 % (13.2-15.2)
[2016-06-22 05:01] LABS: BUN/Creatinine Ratio 6.14; Calcium 8.6 mg/dL (8.4-10.2); Chloride 97.3 mmol/L (98-107); Potassium 4.2 mmol/L (3.6-5.0)
[2016-06-22] MEDS: CATAPRES PO SCH ×2 (08:39→18:47)
[2016-06-22] MEDS: PHOSLO PO SCH ×3 (08:39→18:47)
[2016-06-22] MEDS: NORMODYNE PO SCH ×2 (08:39→18:46)
--- NOTE | 2016-06-22 09:01 | Progress Note ---
Assessment and Plan Impression * End-stage renal disease on maintenance hemodialysis * Altered mental status * Anemia * Hypertension Recommendations * HD Wednesday, Wednesday and Wednesday schedule as outpatient * Epogen with dialysis * Adjust diet and meds for ESRD state * Avoid nephrotoxins * Binders with diet Subjective Date of service: 06/22/16 Interval history: Patient seen on dialysis. She has no complaints. Denies h/a, vision changes and paresthesia. Reports that she ambulated with her walker yesterday. Objective - Vital Signs Vital signs: Vital Signs - 12hr 06/21/16 06/21/16 06/21/16 21:15 21:45 22:00 Temperature 98.9 F 98.1 F Pulse Rate 66 59 L Pulse Rate [ 67 Left Radial] Pulse Rate [ Right Radial] Respiratory 16 18 18 Rate Blood Pressure 157/93 149/96 Blood Pressure [Right Arm] O2 Sat by Pulse 100 100 Oximetry 06/21/16 06/21/16 06/22/16 22:15 23:35 00:00 Temperature 98.2 F 98.2 F 98.0 F Pulse Rate 63 63 Pulse Rate [ Left Radial] Pulse Rate [ 62 Right Radial] Respiratory 18 18 18 Rate Blood Pressure 149/91 151/101 Blood Pressure 154/85 [Right Arm] O2 Sat by Pulse 99 99 96 Oximetry 06/22/16 06/22/16 06/22/16 00:56 06:28 07:00 Temperature 98.0 F Pulse Rate 65 67 Pulse Rate [ 65 Left Radial] Pulse Rate [ Right Radial] Respiratory 19 Rate Blood Pressure Blood Pressure 159/91 [Right Arm] O2 Sat by Pulse 96 Oximetry 06/22/16 08:39 Temperature Pulse Rate Pulse Rate [ Left Radial] Pulse Rate [ Right Radial] Respiratory Rate Blood Pressure 159/91 Blood Pressure [Right Arm] O2 Sat by Pulse Oximetry - General Appearance General appearance: well-developed, well-nourished EENT: ATNC Respiratory: Present: Clear to Ascultation Cardiology: regular, S1S2 Gastrointestinal: normal, no tenderness, no distended Integumentary: no rash Musculoskeletal: other (no edema) Psychiatric: cooperative - Lab 06/22/16 03:46 06/22/16 03:46 Most recent lab results Calcium 8.6 mg/dL (8.4-10.2) 06/22/16 03:46
--- NOTE | 2016-06-22 09:07 | Discharge Summary ---
Providers - Providers Date of Admission: 06/19/16 23:35 Date of discharge: 06/22/16 Attending physician: ALBIN HIGHTOWER MD 06/21/16 08:33 Consult to Physician [CONS] Routine Consulting Provider: JENNYFER ROACH Reason For Exam: ESRD on HD Place consult to:: Richard Notified:: yes Phone number called:: [phone] If yes, spoke with:: Patience Time called:: 09:25 Comment:: DR Andino financial foundations representative Primary care physician: [facility] Hospitalization Reason for admission: Altered mental status, ESRD Condition: Good Pertinent studies: CT head no acute IC process. Hospital course: 50-year-old woman with a history of hypertension, end-stage renal disease on dialysis Wednesday, Wednesday, Wednesday, CVA which right side hemiparesis was sent to the emergency room because of altered mental status. The patient's AMS is resolved and she was treated for UTI. CT head negative. Her hemoglobin was dropped down to 6.3 yesterday and 2 units of blood was ordered and she will get the second unit during dialysis and will go home after that. She has all home medications are reviewed. All questions and concerns were assessed this morning. Disposition: DISCHARGED TO HOME OR SELFCARE Time spent for discharge: 31 minutes - Discharge Diagnoses (1) Altered mental status Status: Acute Qualifiers: Altered mental status type: A Coma depth: C Coma timing: C (2) ESRD (end stage renal disease) on dialysis Status: Acute (3) Hypertensive emergency Status: Acute (4) UTI (urinary tract infection) Status: Acute Qualifiers: Urinary tract infection type: U Hematuria presence: H Indwelling urinary catheter type: I Encounter type: E (5) Anemia Status: Acute Qualifiers: Anemia type: A Iron deficiency anemia type: I Vitamin B12 deficiency anemia type: V Folate deficiency anemia type: F Bone marrow failure anemia type: B Hemolytic anemia type: H Other causes of anemia: O Core Measure Documentation - Palliative Care Palliative Care/ Comfort Measures: Not Applicable - Core Measures Any of the following diagnoses?: none Exam - Physical Exam Narrative exam: Not in cardiopulmonary distress. The patient appeared well nourished and normally developed. Vital signs as documented. Head exam is unremarkable. Plae conjunctiva. Neck is without jugular venous distension, thyromegaly, or carotid bruits. Lungs are clear to auscultation. Cardiac exam reveals regular rate and Rhythm. First and second heart sounds normal. No murmurs, rubs or gallops. Abdominal exam reveals normal bowel sounds, no masses, no organomegaly and no aortic enlargement. Extremities are nonedematous and both femoral and pedal pulses are normal. DOCUMENTATION ANALYST: Alert and oriented 3. - Constitutional Vitals: Temp Pulse Resp BP Pulse Ox 98.0 F 65 19 159/91 96 06/22/16 07:00 06/22/16 07:00 06/22/16 07:00 06/22/16 08:39 06/22/16 07:00 Plan Activity: no restrictions Weight Bearing Status: Full Weight Bearing Diet: renal Follow up with: PRIMARY CARE, [Primary Care Provider] - 3-5 Days Prescriptions: amLODIPine [Norvasc] 10 mg PO DAILY #30 tablet
[2016-06-22] MEDS ORDERED: NACL 0.9 (PRIMING MACHINE ONLY DIALYSIS) MC ONE (12:16)
[2016-06-22] MEDS ORDERED: HEPARIN IV PRN (12:30)
[2016-06-22] MEDS: LOVENOX SUB-Q SCH (15:04)
[2016-06-22] MEDS: Renal Caps PO SCH (15:05)
[2016-06-22] MEDS: NORVASC PO SCH (15:05)
[2016-06-22] MEDS: MAG-OX PO SCH (15:06)
[2016-06-22 18:46] VITALS: BP 147/82
== END 2016-06-22 19:28 | disposition home or self-care (01) | DRG 682 ==
LOC: ED 20:06 → 3A 23:35
PROVIDERS: ADMIT Internal Medicine; ATTEND Internal Medicine
PROC: 30233N1 Transfusion of Nonautologous Red Blood Cells into Peripheral Vein, Percutaneous Approach (ICD-10-PCS; principal; 2016-06-20)
PROC: 5A1D00Z (ICD-10-PCS; 2016-06-20)
DX: I12.0 Hypertensive chronic kidney disease with stage 5 chronic kidney disease or end stage renal disease (principal); N18.6 End stage renal disease; N39.0 Urinary tract infection, site not specified; I16.1 Hypertensive emergency; E16.2 Hypoglycemia, unspecified; D63.8 Anemia in other chronic diseases classified elsewhere; Z88.8 Allergy status to other drugs, medicaments and biological substances; Z82.49 Family history of ischemic heart disease and other diseases of the circulatory system; Z86.73 Personal history of transient ischemic attack (TIA), and cerebral infarction without residual deficits
CPT/HCPCS: 36415; 36430; 51701; 70450; 71010; 80048; 80061; 80320; 81001; 82140; 82550; 82553; 84443; 84484; 85018; 85025; 85730; 86850; 86900; 86901; 86920; 87076; 87086; 87186; 93005; 93010; 93306; 96365; 96375; G0480; J0360; J0696; J1644; J1650; J7030; J7040; P9016